=== PATIENT | female | born 1935 | race Caucasian/White ===

== ENCOUNTER 2021-10-08 10:28 | Inpatient (IN) | payer MEDICARE, BC ==
[2021-10-08 12:15] VITALS: BMI 17.8
[2021-10-08] MEDS ORDERED: Ondansetron PF 4 MG/2 ML Vial IVP PRN (13:04)
[2021-10-08] MEDS ORDERED: Acetaminophen 650 MG Suppository PR PRN (13:04)
[2021-10-08] MEDS ORDERED: Ondansetron ODT 4 MG TAB PO PRN (13:04)
[2021-10-08 14:16] LABS: Anion Gap 11 mmol/L (10-20); BUN (Urea Nitrogen) 16 mg/dL (9.8-20.1); Calc. Creatinine Clearance 32 mL/min (70-130); Calcium 9.1 mg/dL (7.8-10.44); Carbon Dioxide 24 mmol/L (23-31); Chloride 105 mmol/L (98-107); Glucose 131 mg/dL (83-110); Potassium 5.1 mmol/L (3.5-5.1); Sodium 135 mmol/L (136-145)
[2021-10-08 14:21] LABS: Hemoglobin 7.7 g/dL (12.0-15.5); Mean Corpuscular HGB CONC 33.5 g/dL (32.0-36.0); Mean Corpuscular Hemoglobin 31.7 pg (27.0-33.0); Mean Corpuscular Volume 94.7 fl (81.6-98.3); Platelet Count 159 10x3/uL (150-450); RBC Distribution Width 16.5 % (11.5-14.5); Red Blood Cell (RBC) Count 2.43 10x6/uL (3.90-5.03); White Blood Cell (WBC) Count 1.6 10x3/uL (3.5-10.5)
[2021-10-08 14:43] LABS: MDiff Complete? YES
[2021-10-08 14:49] LABS: Eosinophils 1 % (0-10); Lymphocytes 50 % (21-51); Monocytes 5 % (0-10); Neutrophil 43 % (42-75)
[2021-10-08] MEDS ORDERED: Dextrose 5% in Water 1,000 ML IV PRN (14:51)
[2021-10-08] MEDS ORDERED: HumaLOG 300 UNITS/3 ML VIAL SC PRN (14:51)
[2021-10-08] MEDS ORDERED: Dextrose 50% Abboject 50 ML SYRINGE SLOW IVP PRN (14:51)
[2021-10-08 14:52] LABS: Anisocytosis SLIGHT = 6-15 cells (100X) (0-5/hpf)
[2021-10-08 14:53] LABS: Platelet Morphology Comment Appears Adequate
[2021-10-08] MEDS: Sodium Chloride 0.9% 1,000 ML IV SCH (15:03)
[2021-10-08] MEDS ORDERED: Vancomycin HCl 750 MG in Sodium Chloride 0.9% 250 ML 250 ML IVPB SCH (16:00)
[2021-10-08] MEDS ORDERED: traMADol HCl 50 MG TAB PO SCH (16:30)
[2021-10-08] MEDS: Carvedilol 6.25 MG TAB PO SCH (17:28)
[2021-10-08] MEDS: ALPRAZolam 0.5 MG TAB PO SCH (20:00)
[2021-10-08] MEDS: Acetaminophen 325 MG TAB PO PRN (20:00)
[2021-10-08] MEDS: Cefepime 2 GM in Sodium Chloride 0.9% 100 ML IVPB SCH (20:01)
[2021-10-08] MEDS ORDERED: Fentanyl 100 MCG/2 ML VIAL SLOW IVP SCH (22:00)
[2021-10-09] MEDS: Sodium Chloride 0.9% 1,000 ML IV SCH ×2 (03:30→16:22)
[2021-10-09] MEDS ORDERED: Fentanyl 100 MCG/2 ML VIAL SLOW IVP SCH (05:00)
[2021-10-09 05:42] LABS: Anion Gap 12 mmol/L (10-20); BUN (Urea Nitrogen) 12 mg/dL (9.8-20.1); Calc. Creatinine Clearance 37 mL/min (70-130); Calcium 8.5 mg/dL (7.8-10.44); Carbon Dioxide 21 mmol/L (23-31); Chloride 109 mmol/L (98-107); Glucose 93 mg/dL (83-110); Potassium 4.7 mmol/L (3.5-5.1); Sodium 137 mmol/L (136-145)
[2021-10-09 06:19] LABS: Mean Corpuscular HGB CONC 33.3 g/dL (32.0-36.0); Mean Corpuscular Volume 95.9 fl (81.6-98.3); Mean Platelet Volume 10.2 fl (7.4-10.4); Platelet Count 149 10x3/uL (150-450); RBC Distribution Width 17.5 % (11.5-14.5); Red Blood Cell (RBC) Count 2.19 10x6/uL (3.90-5.03); White Blood Cell (WBC) Count 1.6 10x3/uL (3.5-10.5)
[2021-10-09] MEDS: Carvedilol 6.25 MG TAB PO SCH ×2 (07:01→16:27)
[2021-10-09] MEDS: ALPRAZolam 0.5 MG TAB PO SCH ×2 (07:02→21:33)
[2021-10-09 08:06] LABS: Band 2 % (5-11); Eosinophils 2 % (0-10); Lymphocytes 39 % (21-51); Monocytes 8 % (0-10); Neutrophil 44 % (42-75); Reactive Lymphocytes 4 % (0-10)
[2021-10-09 08:07] LABS: Anisocytosis MODERATE=16-30 cells (100X) (0-5/hpf); Macrocytosis SLIGHT = 6-15 cells (100X) (0-5/hpf); Microcytosis SLIGHT = 6-15 cells (100X) (0-5/hpf); Polychromasia SLIGHT = 2-3 cells (100X) (0-2/hpf)
[2021-10-09 08:09] LABS: Large Platelets SLIGHT; Poikilocytosis SLIGHT = 6-15 cells (100X) (0-5/hpf); Tear Drops SLIGHT = 2-5 cells (100X) (0-1/hpf)
[2021-10-09 08:10] LABS: Platelet Morphology Comment Appears Adequate
[2021-10-09 08:12] LABS: Ovalocytes MODERATE= 6-15 cells (100X) (0-1/hpf)
[2021-10-09 08:16] LABS: MDiff Complete? YES
[2021-10-09] MEDS: Cefepime 2 GM in Sodium Chloride 0.9% 100 ML IVPB SCH ×2 (09:27→21:33)
[2021-10-09 15:55] LABS: Vancomycin, Random 4.6 ug/mL (See Comment)
[2021-10-09] MEDS ORDERED: hydrALAZINE 20 MG/ML VIAL SLOW IVP PRN (16:27)
[2021-10-09] MEDS: Vancomycin HCl 500 MG in Sodium Chloride 0.9% 100 ML IVPB SCH (16:27)
[2021-10-09] MEDS ORDERED: Dextrose 50% Abboject 50 ML SYRINGE SLOW IVP PRN (16:27)
[2021-10-09] MEDS ORDERED: Artificial Tear Sol 15 ML BOT EA EYE PRN (16:27)
[2021-10-09] MEDS ORDERED: Labetalol HCl 100 MG/20 ML VIAL SLOW IVP PRN (16:27)
[2021-10-09] MEDS ORDERED: Dextrose 5% in Water 1,000 ML IV PRN (16:27)
[2021-10-09] MEDS ORDERED: Ketorolac Tromethamine 30 MG/ML VIAL IVP PRN (16:30)
[2021-10-09] MEDS ORDERED: Acetaminophen 650 MG Suppository PR PRN (16:33)
[2021-10-09] MEDS ORDERED: cloNIDine 0.1mg/24 Hour PATCH TD SCH (17:00)
[2021-10-09] MEDS ORDERED: Oxymetazoline HCl 0.05% ( 15 ML ) NASAL PRN (20:23)
[2021-10-09] MEDS: Fluticasone Propionate Nasal Spray 16 gm Bottle NASAL SCH (21:33)
[2021-10-09] MEDS: diphenhydrAMINE 25 MG CAP PO PRN (21:33)
[2021-10-09 22:48] LABS: Legionella Urinary Ag Negative (Negative)
[2021-10-09 22:49] LABS: Strep pneumo Urine Ag NEGATIVE (NEGATIVE)
[2021-10-10] MEDS: Acetaminophen 325 MG TAB PO PRN ×2 (03:30→20:33)
[2021-10-10] MEDS: Vancomycin HCl 500 MG in Sodium Chloride 0.9% 100 ML IVPB SCH ×2 (04:18→18:32)
[2021-10-10 05:07] LABS: Iron 77 ug/dL (50-170); Iron Binding Capacity, Total 209 mcg/dL (265-497); Phosphorus 3.1 mg/dL (2.3-4.7)
[2021-10-10 05:37] LABS: Anion Gap 12 mmol/L (10-20); BUN (Urea Nitrogen) 13 mg/dL (9.8-20.1); Calc. Creatinine Clearance 37 mL/min (70-130); Calcium 8.6 mg/dL (7.8-10.44); Carbon Dioxide 21 mmol/L (23-31); Chloride 107 mmol/L (98-107); Glucose 109 mg/dL (83-110); Iron 78 ug/dL (50-170); Iron Binding Capacity, Total 218 mcg/dL (265-497); Magnesium 1.8 mg/dL (1.6-2.6); Potassium 4.7 mmol/L (3.5-5.1); Sodium 135 mmol/L (136-145)
[2021-10-10 05:45] LABS: Hemoglobin 6.6 g/dL (12.0-15.5); Mean Corpuscular HGB CONC 32.8 g/dL (32.0-36.0); Mean Corpuscular Hemoglobin 31.4 pg (27.0-33.0); Mean Corpuscular Volume 95.7 fl (81.6-98.3); Mean Platelet Volume 9.8 fl (7.4-10.4); Platelet Count 178 10x3/uL (150-450); RBC Distribution Width 17.8 % (11.5-14.5); White Blood Cell (WBC) Count 1.4 10x3/uL (3.5-10.5)
[2021-10-10] MEDS: Cefepime 2 GM in Sodium Chloride 0.9% 100 ML IVPB SCH ×2 (08:38→20:35)
[2021-10-10] MEDS: ALPRAZolam 0.5 MG TAB PO SCH ×2 (08:39→23:07)
[2021-10-10] MEDS: Carvedilol 6.25 MG TAB PO SCH ×2 (08:40→18:32)
[2021-10-10] MEDS: Fluticasone Propionate Nasal Spray 16 gm Bottle NASAL SCH ×2 (08:40→20:34)
[2021-10-10 09:07] LABS: MDiff Complete? YES
[2021-10-10 09:26] LABS: Band 2 % (5-11); Eosinophils 4 % (0-10); Lymphocytes 46 % (21-51); Monocytes 2 % (0-10); Neutrophil 44 % (42-75)
[2021-10-10 09:35] LABS: Anisocytosis MODERATE=16-30 cells (100X) (0-5/hpf); Hypochromia SLIGHT = 6-15 cells (100X) (0-5/hpf); Microcytosis SLIGHT = 6-15 cells (100X) (0-5/hpf); Poikilocytosis SLIGHT = 6-15 cells (100X) (0-5/hpf); Polychromasia SLIGHT = 2-3 cells (100X) (0-2/hpf)
[2021-10-10 09:36] LABS: Ovalocytes SLIGHT = 2-5 cells (100X) (0-1/hpf); Platelet Morphology Comment Appears Adequate; Tear Drops SLIGHT = 2-5 cells (100X) (0-1/hpf)
[2021-10-10] MEDS: diphenhydrAMINE 25 MG CAP PO PRN (20:33)
[2021-10-10 21:14] LABS: Hemoglobin 7.6 g/dL (12.0-15.5); Platelet Count 194 10x3/uL (150-450)
[2021-10-11] MEDS: Acetaminophen 325 MG TAB PO PRN ×2 (00:38→10:43)
[2021-10-11] MEDS: Vancomycin HCl 500 MG in Sodium Chloride 0.9% 100 ML IVPB SCH ×2 (05:14→18:53)
[2021-10-11 06:56] LABS: ALT (SGPT) 6 U/L (8-55); AST (SGOT) 21 U/L (5-34); Alkaline Phosphatase 60 U/L (40-110); Anion Gap 11 mmol/L (10-20); BUN (Urea Nitrogen) 12 mg/dL (9.8-20.1); Bilirubin, Total 0.9 mg/dL (0.2-1.2); Calc. Creatinine Clearance 41 mL/min (70-130); Calcium 8.5 mg/dL (7.8-10.44); Carbon Dioxide 21 mmol/L (23-31); Chloride 107 mmol/L (98-107); Potassium 5.3 mmol/L (3.5-5.1); Sodium 134 mmol/L (136-145)
[2021-10-11 07:26] LABS: Glucose 88 mg/dL (83-110)
[2021-10-11 08:04] LABS: Hemoglobin 7.5 g/dL (12.0-15.5); Mean Corpuscular HGB CONC 37.3 g/dL (32.0-36.0); Mean Corpuscular Hemoglobin 33.9 pg (27.0-33.0); Mean Platelet Volume 11.2 fl (7.4-10.4); Platelet Count 145 10x3/uL (150-450); RBC Distribution Width 20.2 % (11.5-14.5); Red Blood Cell (RBC) Count 2.21 10x6/uL (3.90-5.03); White Blood Cell (WBC) Count 1.6 10x3/uL (3.5-10.5)
[2021-10-11 08:50] LABS: Vancomycin, Trough 17.3 ug/mL
[2021-10-11] MEDS ORDERED: Clopidogrel Bisulfate 75 MG TAB PO SCH (09:00)
[2021-10-11] MEDS ORDERED: Lisinopril 5 MG TAB PO SCH (09:00)
[2021-10-11 09:13] LABS: Eosinophils 4 % (0-10); Lymphocytes 52 % (21-51); Neutrophil 44 % (42-75)
[2021-10-11 09:29] LABS: MDiff Complete? YES; Manual Diff?? YES
[2021-10-11] MEDS: Aspirin 81 mg Enteric Coated Tablet PO SCH (09:31)
[2021-10-11] MEDS: Cefepime 2 GM in Sodium Chloride 0.9% 100 ML IVPB SCH ×2 (09:31→21:55)
[2021-10-11] MEDS: ALPRAZolam 0.5 MG TAB PO SCH ×2 (09:32→21:55)
[2021-10-11] MEDS: Carvedilol 6.25 MG TAB PO SCH ×2 (09:32→18:53)
[2021-10-11] MEDS: Fluticasone Propionate Nasal Spray 16 gm Bottle NASAL SCH (09:33)
[2021-10-11] MEDS ORDERED: Albuterol Sulfate 2.5 mg/3 ml Neb NEB SCH (12:45)
[2021-10-11] MEDS ORDERED: Dextrose 5 % And 0.9 % NaCl 1,000 ML IV SCH (12:45)
[2021-10-11] MEDS ORDERED: Calcium Gluconate 4.6 MEQ in Sodium Chloride 0.9% 100 ML IVPB SCH (12:45)
[2021-10-11 16:08] LABS: Vancomycin, Random 14.1 ug/mL (See Comment)
[2021-10-11 20:24] LABS: Anion Gap 11 mmol/L (10-20); BUN (Urea Nitrogen) 16 mg/dL (9.8-20.1); Calc. Creatinine Clearance 37 mL/min (70-130); Calcium 8.6 mg/dL (7.8-10.44); Carbon Dioxide 22 mmol/L (23-31); Chloride 106 mmol/L (98-107); Glucose 147 mg/dL (83-110); Potassium 4.6 mmol/L (3.5-5.1); Sodium 134 mmol/L (136-145)
[2021-10-12 05:44] LABS: Anion Gap 10 mmol/L (10-20); BUN (Urea Nitrogen) 15 mg/dL (9.8-20.1); Calc. Creatinine Clearance 40 mL/min (70-130); Calcium 8.8 mg/dL (7.8-10.44); Carbon Dioxide 23 mmol/L (23-31); Chloride 109 mmol/L (98-107); Glucose 99 mg/dL (83-110); Potassium 4.3 mmol/L (3.5-5.1); Sodium 138 mmol/L (136-145)
[2021-10-12] MEDS: Vancomycin HCl 500 MG in Sodium Chloride 0.9% 100 ML IVPB SCH (05:55)
[2021-10-12 06:51] LABS: #Eosinphils 0.1 10x3/uL (0.0-0.5); #Neutrophils 0.6 10x3/uL (1.5-8.4); %Basophils 1.2 % (0.0-2.0); %Eosinophils 5.8 % (0.0-6.0); %Lymphocytes 52.9 % (18.0-47.0); %Monocytes 2.3 % (0.0-10.0); %Neutrophils 37.2 % (40.0-75.0); Hemoglobin 7.1 g/dL (12.0-15.5); Mean Corpuscular HGB CONC 33.3 g/dL (32.0-36.0); Mean Corpuscular Hemoglobin 32.7 pg (27.0-33.0); Mean Corpuscular Volume 98.2 fl (81.6-98.3); Mean Platelet Volume 9.6 fl (7.4-10.4); Platelet Count 253 10x3/uL (150-450); RBC Distribution Width 18.4 % (11.5-14.5); Red Blood Cell (RBC) Count 2.17 10x6/uL (3.90-5.03); White Blood Cell (WBC) Count 1.7 10x3/uL (3.5-10.5)
[2021-10-12] MEDS: Acetaminophen 325 MG TAB PO PRN ×2 (06:51→15:26)
[2021-10-12] MEDS: Fluticasone Propionate Nasal Spray 16 gm Bottle NASAL SCH ×2 (09:47→09:50)
[2021-10-12] MEDS: Cefepime 2 GM in Sodium Chloride 0.9% 100 ML IVPB SCH (09:49)
[2021-10-12] MEDS: Aspirin 81 mg Enteric Coated Tablet PO SCH (09:49)
[2021-10-12] MEDS: Carvedilol 6.25 MG TAB PO SCH ×2 (09:50→17:59)
[2021-10-12] MEDS: ALPRAZolam 0.5 MG TAB PO SCH ×2 (09:50→21:35)
[2021-10-12] MEDS: diphenhydrAMINE 25 MG CAP PO PRN (15:54)
[2021-10-12 16:45] LABS: Vancomycin, Trough 15.1 ug/mL
[2021-10-12] MEDS ORDERED: Milk Of Magnesia 30 ML UDCUP PO SCH (22:30)
[2021-10-13 06:43] LABS: Anion Gap 13 mmol/L (10-20); BUN (Urea Nitrogen) 16 mg/dL (9.8-20.1); Calc. Creatinine Clearance 37 mL/min (70-130); Calcium 8.7 mg/dL (7.8-10.44); Carbon Dioxide 22 mmol/L (23-31); Chloride 109 mmol/L (98-107); Glucose 116 mg/dL (83-110); Potassium 4.7 mmol/L (3.5-5.1); Sodium 139 mmol/L (136-145)
[2021-10-13] MEDS ORDERED: Nitroglycerin 2% Ointment 1 INCH/1 GM Packet TOP SCH (07:00)
[2021-10-13 08:01] LABS: Hemoglobin 7.9 g/dL (12.0-15.5); Mean Corpuscular HGB CONC 33.5 g/dL (32.0-36.0); Mean Corpuscular Hemoglobin 31.7 pg (27.0-33.0); Mean Corpuscular Volume 94.8 fl (81.6-98.3); Mean Platelet Volume 9.5 fl (7.4-10.4); Platelet Count 313 10x3/uL (150-450); RBC Distribution Width 18.8 % (11.5-14.5); Red Blood Cell (RBC) Count 2.49 10x6/uL (3.90-5.03); White Blood Cell (WBC) Count 1.7 10x3/uL (3.5-10.5)
[2021-10-13 08:02] LABS: MDiff Complete? YES
[2021-10-13 08:36] LABS: Eosinophils 2 % (0-10); Lymphocytes 39 % (21-51); Monocytes 4 % (0-10); Neutrophil 54 % (42-75)
[2021-10-13 08:37] LABS: Anisocytosis SLIGHT = 6-15 cells (100X) (0-5/hpf); Hypochromia SLIGHT = 6-15 cells (100X) (0-5/hpf); Platelet Morphology Comment Appears Adequate
[2021-10-13] MEDS: Docusate 100 MG CAP PO SCH ×2 (09:41→21:34)
[2021-10-13] MEDS: Fluticasone Propionate Nasal Spray 16 gm Bottle NASAL SCH (09:41)
[2021-10-13] MEDS: Betamethasone 0.1% Cream 15 GM TUBE TOP SCH (09:42)
[2021-10-13] MEDS: Aspirin 81 mg Enteric Coated Tablet PO SCH (09:42)
[2021-10-13] MEDS: Carvedilol 6.25 MG TAB PO SCH ×2 (09:42→18:32)
[2021-10-13] MEDS: ALPRAZolam 0.5 MG TAB PO SCH ×2 (09:42→21:33)
[2021-10-13] MEDS ORDERED: cloNIDine 0.1mg/24 Hour PATCH TD SCH (11:00)
[2021-10-13] MEDS: Acetaminophen 325 MG TAB PO PRN (22:50)
[2021-10-14] MEDS: Aspirin 81 mg Enteric Coated Tablet PO SCH (09:27)
[2021-10-14] MEDS: Carvedilol 6.25 MG TAB PO SCH (09:27)
[2021-10-14] MEDS: Docusate 100 MG CAP PO SCH (09:27)
[2021-10-14] MEDS: ALPRAZolam 0.5 MG TAB PO SCH (11:30)
[2021-10-14] MEDS: Betamethasone 0.1% Cream 15 GM TUBE TOP SCH (11:32)
[2021-10-14] MEDS: Sodium Chloride 0.9% 1,000 ML IV SCH (11:33)
[2021-10-14 13:21] VITALS: BP 187/83; TEMP 97.8
== END 2021-10-14 14:03 | DRG 389 ==
LOC: CSHTELE 10:28 → OBSVTOIN 13:04
PROVIDERS: ADMIT Family Medicine; ATTEND Hospitalist
PROC: 30233N1 Transfusion of Nonautologous Red Blood Cells into Peripheral Vein, Percutaneous Approach (ICD-10-PCS; principal; 2021-10-10)
DX: K56.600 Partial intestinal obstruction, unspecified as to cause (principal); C95.90 Leukemia, unspecified not having achieved remission; E87.1 Hypo-osmolality and hyponatremia; D70.9 Neutropenia, unspecified; K21.9 Gastro-esophageal reflux disease without esophagitis; E11.51 Type 2 diabetes mellitus with diabetic peripheral angiopathy without gangrene; R50.81 Fever presenting with conditions classified elsewhere; I25.10 Atherosclerotic heart disease of native coronary artery without angina pectoris; T45.1X5A Adverse effect of antineoplastic and immunosuppressive drugs, initial encounter; D64.81 Anemia due to antineoplastic chemotherapy; D63.0 Anemia in neoplastic disease; Z95.5 Presence of coronary angioplasty implant and graft; Z92.21 Personal history of antineoplastic chemotherapy; Z91.041 Radiographic dye allergy status; Z88.5 Allergy status to narcotic agent; Z88.1 Allergy status to other antibiotic agents; Z88.8 Allergy status to other drugs, medicaments and biological substances; Z79.82 Long term (current) use of aspirin; Z79.899 Other long term (current) drug therapy; Z79.84 Long term (current) use of oral hypoglycemic drugs
CPT/HCPCS: 36415; 36416; 36430; 74018; 80048; 80053; 80202; 82668; 83540; 83550; 83735; 84100; 84145; 85025; 86850; 86900; 86901; 86921; 87040; 87086; 87449; 87899; 94640; 94760; J0610; J0692; J2405; J3010; J3370; J3490; J7042; J7050; J7620; P9016